=== PATIENT | male | born 1965 | race Hispanic/Latino ===

== ENCOUNTER 2019-02-16 10:42 | Emergency (ER) | payer BC ==
[2019-02-16 11:08] LABS: Hematocrit 46.4 % (35.5-45.6); Hemoglobin 15.9 gm/dl (11.8-15.2); Mean Corpuscular HGB Conc 34 % (32-34); Mean Corpuscular Volume 104 fl (84-94); Platelet Count 187 K/mm3 (140-440); Red Blood Count 4.47 M/mm3 (3.65-5.03); Red Cell Distribution Width 14.3 % (13.2-15.2)
[2019-02-16 11:25] LABS: Mean Platelet Volume 6.8 fl (6-12)
[2019-02-16 11:26] LABS: Alanine Aminotransferase 82 units/L (7-56); Albumin 5.2 g/dL (3.9-5); BUN/Creatinine Ratio 4; Blood Urea Nitrogen 3 mg/dL (9-20); Calcium 9.1 mg/dL (8.4-10.2); Hemolysis Index 8
[2019-02-16] MEDS ORDERED: ANTIVERT PO ONE (11:26)
[2019-02-16] MEDS ORDERED: NACL 0.9% 1000 ML 1,000 ML IV ONE (11:26)
[2019-02-16] MEDS ORDERED: VISTARIL PO ONE (11:26)
--- NOTE | 2019-02-16 11:29 | Emergency Department Report ---
ED Dizziness HPI - General Chief Complaint: Dizziness Stated Complaint: VERY DIZZY Time Seen by Provider: 02/16/19 11:25 Source: patient Mode of arrival: Ambulatory Limitations: No Limitations - History of Present Illness Initial Comments: 53 yo male comes to ER with inc. "dizziness." He denies room spins. He states he feels spacy. No n/v/d/fever/chills/infection/recent uri. No trauma. Works around car fumes. Works daily. Pt has had off and on but more persistent lately. brings him for eval. No SOB and no CP pos ETOH daily denies cig/drugs PSH arm as child PMH undx anxiety mom and dad alive and well MD Complaint: dizziness -: Gradual, days(s) History of Trauma: No Severity: mild Improves With: nothing Worsens With: nothing Associated Symptoms: denies other symptoms - Related Data Previous Rx's Medication Instructions Recorded Last Taken Type Cetirizine HCl [ZyrTEC] 10 mg PO DAILY #30 capsule 02/16/19 Unknown Rx Fluticasone [Flonase] 1 spray NS QDAY #1 bottle 02/16/19 Unknown Rx Meclizine [Antivert] 25 mg PO TID PRN #12 tablet 02/16/19 Unknown Rx predniSONE [Deltasone] 20 mg PO DAILY #5 tablet 02/16/19 Unknown Rx Allergies Allergy/AdvReac Type Severity Reaction Status Date / Time Penicillins Allergy Unknown Verified 02/16/19 10:47 ED Review of Systems ROS: Stated complaint: VERY DIZZY Other details as noted in HPI Comment: All other systems reviewed and negative ED Past Medical Hx - Past Medical History Previous Medical History?: Yes Hx Hypertension: Yes - Surgical History Past Surgical History?: No - Family History Family history: no significant - Social History Smoking Status: Never Smoker Substance Use Type: Alcohol - Medications Home Medications: Home Medications Medication Instructions Recorded Confirmed Last Taken Type Cetirizine HCl [ZyrTEC] 10 mg PO DAILY #30 capsule 02/16/19 Unknown Rx Fluticasone [Flonase] 1 spray NS QDAY #1 bottle 02/16/19 Unknown Rx Meclizine [Antivert] 25 mg PO TID PRN #12 tablet 02/16/19 Unknown Rx predniSONE [Deltasone] 20 mg PO DAILY #5 tablet 02/16/19 Unknown Rx ED Physical Exam - General Limitations: No Limitations General appearance: alert - Head Head exam: Present: normocephalic - Eye Eye exam: Present: normal appearance, PERRL - ENT ENT exam: Present: mucous membranes moist - Neck Neck exam: Present: normal inspection - Respiratory Respiratory exam: Present: normal lung sounds bilaterally - Cardiovascular Cardiovascular Exam: Present: regular rate - GI/Abdominal GI/Abdominal exam: Present: soft, normal bowel sounds - Rectal Rectal exam: Present: deferred - Extremities Exam Extremities exam: Present: normal inspection, full ROM - Back Exam Back exam: Present: normal inspection, full ROM - Neurological Exam Neurological exam: Present: alert, oriented X3, CN II-XII intact, normal gait - Psychiatric Psychiatric exam: Present: normal affect, normal mood - Skin Skin exam: Present: warm, dry, intact ED Course Vital Signs 02/16/19 02/16/19 02/16/19 10:45 12:00 12:50 Temperature 97.7 F 98.1 F Pulse Rate 91 H 86 Respiratory 18 16 16 Rate Blood Pressure 150/102 Blood Pressure 136/90 [Right] O2 Sat by Pulse 99 98 98 Oximetry ED Medical Decision Making - Lab Data Result diagrams: 02/16/19 10:54 02/16/19 10:54 - EKG Data EKG shows normal: sinus rhythm Rate: normal - EKG Data When compared to previous EKG there are: other (no comparison; no hx cad) Interpretation: nonspecific ST-T wave khalida - Radiology Data Radiology results: report reviewed, image reviewed Lab Results 02/16/19 02/16/19 02/16/19 Range/Units 10:54 10:54 Unknown WBC 2.8 L (4.5-11.0) K/mm3 RBC 4.47 (3.65-5.03) M/mm3 Hgb 15.9 H (11.8-15.2) gm/dl Hct 46.4 H (35.5-45.6) % MCV 104 H (84-94) fl MCH 36 H (28-32) pg MCHC 34 (32-34) % RDW 14.3 (13.2-15.2) % Plt Count 187 (140-440) K/mm3 Lymph % (Auto) Not Reportable [place] % (Auto) Not Reportable Eos % (Auto) Not Reportable Baso % (Auto) Emr Analyst Lymph # Not Reportable [place] # Not Reportable Eos # Not Reportable Baso # Not Reportable Add Manual Diff Complete Total Counted 100 Seg Neutrophils % Not Reportable Seg Neuts % (Manual) 53.0 (40.0-70.0) % Band Neutrophils % 0 % Lymphocytes % (Manual) 36.0 H (13.4-35.0) % Reactive Lymphs % (Man) 0 % Monocytes % (Manual) 4.0 (0.0-7.3) % Eosinophils % (Manual) 3.0 (0.0-4.3) % Basophils % (Manual) 4.0 H (0.0-1.8) % Metamyelocytes % 0 % Myelocytes % 0 % Promyelocytes % 0 % Blast Cells % 0 % Nucleated RBC % 0.1 (0.0-0.9) % Seg Neutrophils # Not Reportable Seg Neutrophils # Man 1.5 L (1.8-7.7) K/mm3 Band Neutrophils # 0.0 K/mm3 Lymphocytes # (Manual) 1.0 L (1.2-5.4) K/mm3 Abs React Lymphs (Man) 0.0 K/mm3 Monocytes # (Manual) 0.1 (0.0-0.8) K/mm3 Eosinophils # (Manual) 0.1 (0.0-0.4) K/mm3 Basophils # (Manual) 0.1 (0.0-0.1) K/mm3 Metamyelocytes # 0.0 K/mm3 Myelocytes # 0.0 K/mm3 Promyelocytes # 0.0 K/mm3 Blast Cells # 0.0 K/mm3 WBC Morphology Not Reportable Hypersegmented Neuts Not Reportable Hyposegmented Neuts Not Reportable Hypogranular Neuts Not Reportable Smudge Cells Not Reportable Toxic Granulation Not Reportable Toxic Vacuolation Not Reportable Dohle Bodies Not Reportable Pelger-Huet Anomaly Not Reportable Oleg Rods Not Reportable Platelet Estimate Consistent w auto Clumped Platelets Not Reportable Plt Clumps, EDTA Not Reportable Large Platelets Not Reportable Giant Platelets Not Reportable Platelet Satelliting Not Reportable Plt Morphology Comment Not Reportable RBC Morphology Not Reportable Dimorphic RBCs Not Reportable Polychromasia Not Reportable Hypochromasia Not Reportable Poikilocytosis Not Reportable Anisocytosis Not Reportable Microcytosis Not Reportable Macrocytosis Not Reportable Spherocytes Not Reportable Pappenheimer Bodies Not Reportable Sickle Cells Not Reportable Target Cells Not Reportable Tear Drop Cells Not Reportable Ovalocytes Not Reportable Helmet Cells Not Reportable [place] Bodies Not Reportable [place] Not Reportable [place] Cells Not Reportable Bite Cells Not Reportable Crenated Cell Not Reportable Elliptocytes Not Reportable Acanthocytes (Spur) Not Reportable Rouleaux Not Reportable Hemoglobin C Crystals Not Reportable Schistocytes Not Reportable Malaria parasites Not Reportable Jason Bodies Not Reportable Hem Pathologist Commnt No Sodium 141 (137-145) mmol/L Potassium 4.2 (3.6-5.0) mmol/L Chloride 96.6 L (98-107) mmol/L Carbon Dioxide 23 (22-30) mmol/L Anion Gap 26 mmol/L BUN 3 L (9-20) mg/dL Creatinine 0.7 L (0.8-1.5) mg/dL Estimated GFR > 60 ml/min BUN/Creatinine Ratio 4 % Glucose 221 H (75-100) mg/dL Calcium 9.1 (8.4-10.2) mg/dL Total Bilirubin 0.50 (0.1-1.2) mg/dL AST 205 H (5-40) units/L ALT 82 H (7-56) units/L Alkaline Phosphatase 98 (35-129) units/L Troponin T < 0.010 (0.00-0.029) ng/mL Total Protein 8.3 H (6.3-8.2) g/dL Albumin 5.2 H (3.9-5) g/dL Albumin/Globulin Ratio 1.7 % Urine Color Yellow (Yellow) Urine Turbidity Clear (Clear) Urine pH 6.0 (5.0-7.0) Ur Specific [place] 1.006 (1.003-1.030) Urine Protein <15 mg/dl (Negative) mg/dL Urine Glucose (UA) 50 (Negative) mg/dL Urine Ketones Tr (Negative) mg/dL Urine Blood Neg (Negative) Urine Nitrite Neg (Negative) Urine Bilirubin Neg (Negative) Urine Urobilinogen < 2.0 (<2.0) mg/dL Ur Leukocyte Esterase Neg (Negative) Urine WBC (Auto) < 1.0 (0.0-6.0) /HPF Urine RBC (Auto) < 1.0 (0.0-6.0) /HPF Urine Mucus Few /HPF Vital Signs 02/16/19 02/16/19 02/16/19 10:45 12:00 12:50 Temperature 97.7 F 98.1 F Pulse Rate 91 H 86 Respiratory 18 16 16 Rate Blood Pressure 150/102 Blood Pressure 136/90 [Right] O2 Sat by Pulse 99 98 98 Oximetry - Medical Decision Making no cp or sob nonspec st t wave changes with no family hx and no risk factors; thin male discussed with pt CT neg acute process no focal neuro def no pronator drift ambulatory chronic sinus inflammation noted-- will treat with prednisone/zyrtec/flonase xray chest nap no cough/fever/chills bp initially slightly inc. then dec pt will monitor on exam inc dizziness with rapid head movement to l side; no nystagmus. no n/v antivert given with "some improvement." pt ambulatory, moving and working wo difficulty labs noted discussed etoh discussed wbc- no fever or frequent infections bs slightly inc with [address] and tr ketones in urine--pt drinking soda on exam pt denies weight loss or polyuria/dispsia - does have fam hx of DM and pt have been educated on all of these items and will follow up with referred MD they verbalize understanding. Vital Signs 02/16/19 02/16/19 02/16/19 10:45 12:00 12:50 Temperature 97.7 F 98.1 F Pulse Rate 91 H 86 Respiratory 18 16 16 Rate Blood Pressure 150/102 Blood Pressure 136/90 [Right] O2 Sat by Pulse 99 98 98 Oximetry - Differential Diagnosis ro sinususitis/dehydration/arrhythmia/intracranial cause dizziness Critical care attestation.: If time is entered above; I have spent that time in minutes in the direct care of this critically ill patient, excluding procedure time. ED Disposition Clinical Impression: Vertigo, Elevated blood pressure reading, Chronic sinusitis, Hyperglycemia, Alcohol abuse, daily use Disposition: DC-01 TO HOME OR SELFCARE Is pt being admited?: No Does the pt Need Aspirin: No Condition: Stable Instructions: Sinusitis (ED), Vertigo (ED), DASH Eating Plan (ED) Additional Instructions: MEDS ORDERED TODAY FOLLOW UP WITH PCP REFERRAL BELOW DIET AND ACTIVITY TOLERATED AVOID ALCOHOL HYDRATE WELL WITH WATER MONITOR YOUR BLOOD PRESSURE AND TAKE TO PCP Prescriptions: Meclizine [Antivert] 25 mg PO TID PRN #12 tablet PRN Reason: Vertigo predniSONE [Deltasone] 20 mg PO DAILY #5 tablet Fluticasone [Flonase] 1 spray NS QDAY #1 bottle Cetirizine HCl [ZyrTEC] 10 mg PO DAILY #30 capsule Referrals: [facility] [Outside] - 3-5 Days LILO MCCORMICK MD [Staff Physician] - 3-5 Days ISIDORO LOPEZ MD [Staff Physician] - 3-5 Days Time of Disposition: 12:34
[2019-02-16 12:03] LABS: Total Cells Counted 100
[2019-02-16 12:04] LABS: Platelet Estimate Consistent w Auto
--- NOTE | 2019-02-16 12:11 | XRay Report ---
CHEST 2 VIEWS INDICATION: Chest pain. COMPARISON: None FINDINGS: Support devices: None. Heart: Within normal limits. Lungs/pleura: No acute air space or interstitial disease. No pneumothorax. Additional findings: None. IMPRESSION: No acute findings. Signer Name: Robel Gentile Jr, MD Signed: 02/16/2019 12:07 PM Workstation Name: [id number]
[2019-02-16 12:15] LABS: Nucleated Red Blood Cells 0.1 % (0.0-0.9)
[2019-02-16 12:47] LABS: Bilirubin,Urine NEG (Negative); Blood,Urine NEG (Negative); Color,Urine Yellow (Yellow); Mucus,Urine FEW /HPF; Protein,Urine <15 mg/dL mg/dL (Negative); RBC,Urine < 1.0 /HPF (0.0-6.0); Urobilinogen,Urine < 2.0 mg/dL (<2.0); WBC,Urine < 1.0 /HPF (0.0-6.0)
--- NOTE | 2019-02-16 12:51 | Cat Scan Report ---
CT HEAD WITHOUT CONTRAST INDICATION : Dizziness, syncope. TECHNIQUE: Axial imaging performed from the skull apex through the skull base without the use of con trast. Sagittal and coronal reformatted images. All CT scans at this location are performed using C T dose reduction for ALARA by means of automated exposure control. COMPARISON: None FINDINGS: Parenchyma: Mild diffuse volume loss is evident. The brain parenchyma demonstrates normal attenuatio n otherwise. The ann-white interface is well-defined. No evidence for mass lesion, hemorrhage or lar ge area of acute ischemia. Ventricles: Ventricles are normal in size and appear symmetric. Bones: No acute osseous abnormality. Sinuses: There appear to be multiple polyps in the inferior right maxillary sinus which are partiall y imaged. There is mild mucosal thickening or fluid in the ethmoid sinuses. The remaining sinuses and mastoid air cells are well-aerated. Soft tissues: Soft tissues including the orbits appear normal. IMPRESSION: No acute intracranial abnormality. Mild diffuse volume loss which is likely age appropria te. Chronic appearing sinus disease as described. Signer Name: Robel Gentile Jr, MD Signed: 02/16/2019 12:47 PM Workstation Name: [id number]
[2019-02-16 12:53] VITALS: BP 136/90
== END 2019-02-16 13:48 | disposition home or self-care (01) ==
LOC: ED 10:42
DX: I10 Essential (primary) hypertension (principal); J32.9 Chronic sinusitis, unspecified; R42 Dizziness and giddiness; Z88.0 Allergy status to penicillin; Z79.899 Other long term (current) drug therapy
CPT/HCPCS: 36415; 70450; 71046; 80053; 81001; 84484; 85007; 85025; 93005; 93010; 96360; 99284; J7030

== ENCOUNTER 2019-04-06 14:31 | Emergency (ER) | payer BC ==
--- NOTE | 2019-04-06 14:36 | Emergency Department Report ---
Blank Doc - Documentation Documentation: 53-year-old male that presents with right rib pain s/p trip and fall. Denies any other injuries or complaints. This initial assessment/diagnostic orders/clinical plan/treatment(s) is/are subject to change based on patient's health status, clinical progression and re-assessment by fellow clinical providers in the ED. Further treatment and workup at subsequent clinical providers discretion. Patient/guardians urged not to elope from the ED as their condition may be serious if not clinically assessed and managed. Initial orders include: 1- Patient sent to [facility] for further evaluation and treatment 2- xrays
--- NOTE | 2019-04-06 15:09 | XRay Report ---
RIGHT RIB SERIES 5 VIEWS INDICATION: rib pain s/p fall. COMPARISON: Chest radiographs 02/16/2019. FINDINGS: There are minimally displaced fractures through the anterolateral right ninth and 10th ribs. No addit ional right-sided rib fractures are seen. No pulmonary contusion or hemopneumothorax. IMPRESSION: 1. Minimally displaced anterolateral right ninth and 10th rib fractures. Signer Name: Willy Meza MD Signed: 04/06/2019 3:04 PM Workstation Name: [id number]
[2019-04-06] MEDS ORDERED: oxyCODONE /ACETAMINOPHEN 5-325MG TAB PO ONE (15:35)
--- NOTE | 2019-04-06 15:40 | Emergency Department Report ---
ED Fall HPI - General Chief Complaint: Fall Stated Complaint: RT SIDE RIB PAIN Time Seen by Provider: 04/06/19 14:35 Source: patient Mode of arrival: Ambulatory - History of Present Illness Initial Comments: Patient is a 53-year-old male who presents emergency room after a fall that occurred three days ago. He states he slipped and fell over some dog food and landed on his right ribs directly onto a chair. He is complaining of right rib pain which is worse with movement, coughing, sneezing. denies any loss of consciousness, hitting his head, shortness of breath, any other injury. Denies any past medical history. He states he has an allergy to penicillin. He is a nonsmoker. He states he drinks one beer a day. - Related Data Previous Rx's Medication Instructions Recorded Last Taken Type Cetirizine HCl [ZyrTEC] 10 mg PO DAILY #30 capsule 02/16/19 Unknown Rx Fluticasone [Flonase] 1 spray NS QDAY #1 bottle 02/16/19 Unknown Rx Meclizine [Antivert] 25 mg PO TID PRN #12 tablet 02/16/19 Unknown Rx predniSONE [Deltasone] 20 mg PO DAILY #5 tablet 02/16/19 Unknown Rx Ibuprofen [Motrin 600 MG tab] 600 mg PO Q8H PRN #14 tablet 04/06/19 Unknown Rx oxyCODONE /ACETAMINOPHEN [Percocet 1 tab PO Q6HR PRN #12 tablet 04/06/19 Unknown Rx 5/325 mg] Allergies Allergy/AdvReac Type Severity Reaction Status Date / Time Penicillins Allergy Unknown Verified 02/16/19 10:47 ED Review of Systems ROS: Stated complaint: RT SIDE RIB PAIN Other details as noted in HPI Comment: All other systems reviewed and negative ED Past Medical Hx - Past Medical History Previous Medical History?: Yes Hx Hypertension: Yes - Surgical History Past Surgical History?: No - Social History Smoking Status: Never Smoker Substance Use Type: Alcohol - Medications Home Medications: Home Medications Medication Instructions Recorded Confirmed Last Taken Type Cetirizine HCl [ZyrTEC] 10 mg PO DAILY #30 capsule 02/16/19 Unknown Rx Fluticasone [Flonase] 1 spray NS QDAY #1 bottle 02/16/19 Unknown Rx Meclizine [Antivert] 25 mg PO TID PRN #12 tablet 02/16/19 Unknown Rx predniSONE [Deltasone] 20 mg PO DAILY #5 tablet 02/16/19 Unknown Rx Ibuprofen [Motrin 600 MG tab] 600 mg PO Q8H PRN #14 tablet 04/06/19 Unknown Rx oxyCODONE /ACETAMINOPHEN [Percocet 1 tab PO Q6HR PRN #12 tablet 04/06/19 Unknown Rx 5/325 mg] ED Physical Exam - General Limitations: No Limitations General appearance: alert, in no apparent distress - Head Head exam: Present: atraumatic, normocephalic - Eye Eye exam: Present: normal appearance - ENT ENT exam: Present: mucous membranes moist - Respiratory Respiratory exam: Present: normal lung sounds bilaterally, other (TTP over the right anterior and lateral ribs, light ecchymosis present to the right lateral ribs, no obvious deformity, no crepitus). Absent: respiratory distress, wheezes, rales, rhonchi, stridor, accessory muscle use, decreased breath sounds, prolonged expiratory - Cardiovascular Cardiovascular Exam: Present: regular rate, normal rhythm, normal heart sounds. Absent: systolic murmur, diastolic murmur, rubs, gallop - Neurological Exam Neurological exam: Present: alert, oriented X3 - Psychiatric Psychiatric exam: Present: normal affect, normal mood - Skin Skin exam: Present: warm, dry, intact ED Course Vital Signs 04/06/19 04/06/19 14:34 15:59 Temperature 98.7 F Pulse Rate 108 H 90 Respiratory 16 20 Rate Blood Pressure 169/94 Blood Pressure 137/93 [Left] O2 Sat by Pulse 99 98 Oximetry ED Medical Decision Making - Lab Data Vital Signs 04/06/19 04/06/19 14:34 15:59 Temperature 98.7 F Pulse Rate 108 H 90 Respiratory 16 20 Rate Blood Pressure 169/94 Blood Pressure 137/93 [Left] O2 Sat by Pulse 99 98 Oximetry - Radiology Data Radiology results: report reviewed RIGHT RIB SERIES 5 VIEWS INDICATION: rib pain s/p fall. COMPARISON: Chest radiographs 02/16/2019. FINDINGS: There are minimally displaced fractures through the anterolateral right ninth and 10th ribs. No additional right-sided rib fractures are seen. No pulmonary contusion or hemopneumothorax. IMPRESSION: 1. Minimally displaced anterolateral right ninth and 10th rib fractures. Signer Name: Willy Meza MD Signed: 04/06/2019 3:04 PM Workstation Name: [email or web address] Transcribed By: SW Dictated By: Willy Meza MD Electronically Authenticated By: Willy Meza MD Signed Date/Time: 04/06/191503 DD/ 02 TD/TT: - Medical Decision Making Patient is a 53-year-old male who presents emergency room after a fall that occurred three days ago. He states he slipped and fell over some dog food and landed on his right ribs directly onto a chair. He is complaining of right rib pain which is worse with movement, coughing, sneezing. denies any loss of consciousness, hitting his head, shortness of breath, any other injury. Denies any past medical history. He states he has an allergy to penicillin. He is a nonsmoker. He states he drinks one beer a day. initial vitals with mild tachycardia and elevated BP which improved upon repeat. on exam: TTP over the right anterior and lateral ribs, light ecchymosis present to the right lateral ribs, no obvious deformity, no crepitus. XR ribs with chest: 1. Minimally displaced anterolateral right ninth and 10th rib fractures. pts discomfort treated in the ED as patient did not drive and improved. pt given prescription for anti-inflammatory and pain medication. advised pt to please take medication as prescribed as needed. Do not drive or operate heavy machinery while taking pain medication. May use ice pack, heating pad, rest, epsom salt bath. Follow- up with a primary care doctor in the next 2-3 days. Return to the emergency room for any new or worsening symptoms. - Differential Diagnosis rib fx, hemothorax, pneumothorax, rib contusion, lung contusion Critical care attestation.: If time is entered above; I have spent that time in minutes in the direct care of this critically ill patient, excluding procedure time. ED Disposition Clinical Impression: Right rib fracture Qualifiers: Encounter type: initial encounter Rib fracture type: multiple ribs Fracture type: closed Qualified Code(s): S22.41XA - Multiple fractures of ribs, right side, initial encounter for closed fracture Disposition: DC-01 TO HOME OR SELFCARE Is pt being admited?: No Does the pt Need Aspirin: No Condition: Stable Instructions: Rib Fracture (ED) Additional Instructions: please take medication as prescribed as needed. Do not drive or operate heavy machinery while taking pain medication. May use ice pack, heating pad, rest, epsom salt bath. Follow-up with a primary care doctor in the next 2-3 days. Return to the emergency room for any new or worsening symptoms. Prescriptions: Ibuprofen [Motrin 600 MG tab] 600 mg PO Q8H PRN #14 tablet PRN Reason: Pain, Moderate (4-6) oxyCODONE /ACETAMINOPHEN [Percocet 5/325 mg] 1 tab PO Q6HR PRN #12 tablet PRN Reason: Pain , Severe (7-10) Referrals: STEVEN MULLIGAN MD [Staff Physician] - 2-3 Days [facility] [Provider Group] - 2-3 Days CAYDEN BARRAZA DO [Staff Physician] - 2-3 Days Time of Disposition: 15:38 Print Language: ANGUILLAN
[2019-04-06 16:02] VITALS: BP 137/93
== END 2019-04-06 15:59 | disposition home or self-care (01) ==
LOC: ED 14:31
DX: S22.41XA Multiple fractures of ribs, right side, initial encounter for closed fracture (principal); I10 Essential (primary) hypertension; Z79.1 Long term (current) use of non-steroidal anti-inflammatories (NSAID); Z79.899 Other long term (current) drug therapy; Z88.0 Allergy status to penicillin; W19.XXXA Unspecified fall, initial encounter; Y93.89 Activity, other specified; Y92.89 Other specified places as the place of occurrence of the external cause; Y99.8 Other external cause status